=== PATIENT | female | born 1955 | race Caucasian/White ===

== ENCOUNTER 2021-05-13 08:34 | Outpatient (CLI) | payer MEDICARE, SELFPAY ==
[2021-05-13 09:03] VITALS: BP 153/78; PULSE 84; RESP 16; TEMP 36.8; O2SAT 96; BMI 23.6
[2021-05-13 09:20] VITALS: BP 154/64; PULSE 80; RESP 16; O2SAT 97
[2021-05-13 10:20] VITALS: BP 150/80; PULSE 78; RESP 17; TEMP 36.7; O2SAT 97
--- NOTE | 2021-05-18 14:39 | PC.SOCIAL ---
antibody infusion follow up call: still not feeling good , fever,vomiting and diarrhea subsided. symptoms prior to infusion: fever, vomiting, diarrhea
== END 2021-05-13 08:35 | disposition home or self-care (01) ==
LOC: OPS 08:41
PROVIDERS: PCP Nurse Practitioner Family; Visit Provider Nurse Practitioner
DX: U07.1 COVID-19 (principal)
CPT/HCPCS: 96365

== ENCOUNTER → 2023-07-26 10:41 | Outpatient (BNVA) | payer MEDICARE, SELFPAY | PROVIDERS: PCP Family Medicine; Referring Provider Nurse Practitioner Family; Visit Provider Specialist | DX: G50.1 Atypical facial pain (principal); I65.21 Occlusion and stenosis of right carotid artery; F17.210 Nicotine dependence, cigarettes, uncomplicated | CPT/HCPCS: 99204 ==

== ENCOUNTER 2023-08-07 14:47 | Outpatient (CLI) | payer MEDICARE, SELFPAY ==
--- NOTE | 2023-08-07 15:15 | MR_ITS ---
WS: [id number] MRI HEAD WITH CONTRAST TECHNIQUE: Sagittal T1, T2 axial, T2 axial FLAIR, axial susceptibility weighted imaging, axial diffus ion weighted images, and coronal T2 images were obtained. Pre and post-T1 axial and post T1 coronal i mages. ADC and FSPGR images. CLINICAL INFORMATION: G50.1 - Atypical facial pain COMPARISON: None. FINDINGS: No evidence of restricted diffusion to suggest acute ischemia. Ventricular system and basal cisterns are patent. Minimal small vessel changes. Mild parenchymal volume loss. Normal posterior fossa. Diane l vascular flow voids at the skull base. No extra-axial fluid collections. Mild mucosal thickening in the paranasal sinuses. Mastoid air cells are well aerated. 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 Normal posterior nasopharynx. No hemosiderin on the susceptibility weighted images. Normal optic martha sm and pituitary infundibulum. Proximal 7th and 8th cranial nerves are normal. No evidence of enhancing IAC or CP angle mass. Normal cavernous sinuses and Meckel's cave. Normal trigeminal nerve root entry zones. No enhancing lesions along the trigeminal nerves. No abnormal intracranial enhancement. Normal dural venous sinuses. Incidental venous angioma RIGHT ce rebellum. IMPRESSION: 1. No evidence of restricted diffusion to suggest acute ischemia. 2. Mild small vessel changes. Mild parenchymal volume loss. 3. Proximal 7th and 8th cranial nerves are normal. Normal trigeminal nerve root entry zones. 4. No evidence of enhancing IAC or CP angle mass. 5. No hemosiderin on susceptibility-weighted images. 6. No other acute findings.
[2023-08-07] MEDS: gadobenate dimeglumine 20 mL vial IV (16:10)
== END 2023-08-07 14:48 | disposition home or self-care (01) ==
LOC: RAD 14:48
PROVIDERS: PCP Family Medicine; Visit Provider Specialist
DX: G50.1 Atypical facial pain (principal)
CPT/HCPCS: 70553; A9577

== ENCOUNTER → 2023-10-05 14:34 | Outpatient (BNVA) | payer MEDICARE, SELFPAY | PROVIDERS: PCP Family Medicine; Visit Provider Specialist | DX: G50.1 Atypical facial pain (principal); I65.21 Occlusion and stenosis of right carotid artery; F17.200 Nicotine dependence, unspecified, uncomplicated | CPT/HCPCS: 99214 ==

== ENCOUNTER → 2024-04-04 08:45 | Outpatient (BNVA) | payer MEDICARE, SELFPAY | PROVIDERS: PCP Family Medicine; Visit Provider Specialist | DX: G50.1 Atypical facial pain (principal); I65.21 Occlusion and stenosis of right carotid artery; F17.200 Nicotine dependence, unspecified, uncomplicated | CPT/HCPCS: 96116; 99214; 99215 ==

== ENCOUNTER → 2024-07-01 14:49 | Outpatient (BNVA) | payer MEDICARE, SELFPAY | PROVIDERS: PCP Family Medicine; Visit Provider Specialist | DX: G50.1 Atypical facial pain (principal); I65.21 Occlusion and stenosis of right carotid artery; R03.0 Elevated blood-pressure reading, without diagnosis of hypertension; F17.200 Nicotine dependence, unspecified, uncomplicated | CPT/HCPCS: 96116; 99213 ==